=== PATIENT | female | born 1955 | race Caucasian/White ===

== ENCOUNTER → 2016-03-05 | Outpatient (CLI) | payer OTHER ==
[~2016-03-05] VITALS: Ht 160 cm; Wt 90.2 kg
[~2016-03-05] MED LIST: ASPCH81 PO; ASPI81TA28 PO; CITA20TA4 PO; CLX20 PO
[2016-03-05 16:19] VITALS: BP 159/80; PULSE 99; Ht 160 cm; Wt 90.2 kg
== END | disposition home or self-care (01) ==
LOC: C.NEUR 15:28
PROVIDERS: ATTEND Internal Medicine Pulmonary Disease
DX: G47.30 Sleep apnea, unspecified (principal); G47.19 Other hypersomnia

== ENCOUNTER → 2016-04-14 | Outpatient (CLI) | payer OTHER ==
[2016-04-14 13:12] LABS: ESTIMATED AVERAGE GLUCOSE 131 mg/dl; HA1C FLAG Normal (Normal)
[2016-04-14 13:13] LABS: THYROID STIMULATING HORMONE 2.47 uIu/ml (0.300-4.500)
== END | disposition home or self-care (01) ==
LOC: C.LABBFT 10:36
PROVIDERS: ATTEND Internal Medicine
DX: E11.9 Type 2 diabetes mellitus without complications (principal); E03.9 Hypothyroidism, unspecified

== ENCOUNTER 2016-06-13 18:37 | Emergency (ER) | payer OTHER ==
[~2016-06-13] VITALS: Ht 160 cm; Wt 88.4 kg
[~2016-06-13 18:37] MED LIST changes: -ASPI81TA28 PO; -CITA20TA4 PO
[2016-06-13 18:41] VITALS: TEMP 36.9; Ht 160 cm; Wt 88.4 kg
[2016-06-13] MEDS ORDERED: ACETAMINOPHEN 500 MG TAB PO STA (18:52)
[2016-06-13] MEDS ORDERED: KETOROLAC TROMETHAMINE 60 MG/2 ML VIAL IM STA (18:52)
--- NOTE | 2016-06-13 19:42 | DIAGNOSTIC IMAGING REPORT ---
CT SCAN OF THE BRAIN WITHOUT IV CONTRAST CLINICAL HISTORY: Headache. COMPARISON STUDY: CT of the brain dated 10/08/2013. TECHNIQUE: Unenhanced axial CT scan of the brain is performed from the vertex to the skull base. Automated dose control exposure was utilized. CT DOSE: 537.48 mGy.cm FINDINGS: Brain parenchyma: The brain parenchyma is normal in appearance. There is no hemorrhage, mass effect, or evidence of acute territorial ischemia by CT criteria. [place]oto-white matter is preserved. No extra-axial fluid collection is seen. Ventricles, sulci, cisterns: There is mild atherosclerotic calcification of the cavernous carotid arteries. Intracranial vasculature: The visualized intracranial vasculature at the skull base is normal in appearance. Calvarium: Unremarkable. Sinuses and mastoids: The visualized paranasal sinuses are clear. The mastoid air cells are well pneumatized. Orbits: The bony orbits are grossly intact. IMPRESSION: No acute intracranial abnormality. Electronically signed by: Cedric Rooney M.D. 06/13/2016 7:40 PM Dictated Date/Time: 06/13/2016 7:38 PM
[2016-06-13] MEDS ORDERED: ASPI81TA28 PO (19:43)
[2016-06-13] MEDS ORDERED: CITA20TA4 PO (19:43)
--- NOTE | 2016-06-13 19:55 | EMERGENCY ROOM VISIT NOTE ---
History Report prepared by [place]: Ignacio Lobato Under the Supervision of: Dr. Karthik Newton D.O. First contact with patient: 18:48 Chief Complaint: HYPERTENSION Stated Complaint: HIGH BLOOD PRESSURE,BAD HEADACHE History of Present Illness The patient is a 61 year old female who presents to the Emergency Room with complaints of constant hypertension for the past two days. The patient states that she was having a headache, so she checked her blood pressure and it was high. She states that she went to work, and she checked it later, and it was still high. The patient states that she took a half of a pill of blood pressure medicine, and that seemed to help, however the headache came back, and she took another half of a pill, and it did not help today. The patient states that the last time she checked her blood pressure it was 168/92mmHg. The patient additionally states that her doctor recently changed her medications. Source of History: patient Onset: two days ago Position: other (global) Quality: other (hypertension) Timing: constant Associated Symptoms: + headache Review of Systems See HPI for pertinent positives & negatives. A total of 10 systems reviewed and were otherwise negative. Past Medical & Surgical Medical Problems: (1) Hypertension Family History Cancer Diabetes mellitus Heart disease Hypertension Lung disease Social History Smoking Status: Never Smoker Alcohol Use: occasionally Marital Status: single Occupation Status: employed Current/Historical Medications Scheduled Aspirin (Aspirin Ec), 81 MG PO DAILY Citalopram Hydrobromide (Citalopram Hydrobromide), 10 TAB PO DAILY Allergies Coded Allergies: Penicillins (Unverified Allergy, Mild, ., 06/13/16) Lisinopril (Verified Allergy, Unknown, cough, 06/13/16) Physical Exam Vital Signs Date Time Temp Pulse Resp B/P Pulse Ox O2 Delivery O2 Flow Rate FiO2 06/13/16 18:41 36.9 90 20 162/85 98 Room Air Physical Exam CONSTITUTIONAL/VITAL SIGNS: Reviewed / noted above. GENERAL: Non-toxic in appearance. INTEGUMENTARY: Warm, dry, and [place]. HEAD: Normocephalic. EYES: without scleral icterus or trauma. ENT/OROPHARYNX: clear and moist. LYMPHADENOPATHY/NECK: Is supple without lymphadenopathy or meningismus. RESPIRATORY: Lungs clear and equal. CARDIOVASCULAR: Regular rate and rhythm. GI/ABDOMEN: Soft and nontender. No organomegaly or pulsatile mass. No rebound or guarding. Normal bowel sounds. EXTREMITIES: Warm and well perfused. BACK: No CVA tenderness. NEUROLOGICAL: Intact without focal deficits. PSYCHIATRIC: normal affect. MUSCULOSKELETAL: Normally developed with good muscle tone. Medical Decision & Procedures ER Provider Diagnostic Interpretation: Radiology results as stated below per my review and radiologist interpretation: CT SCAN OF THE BRAIN WITHOUT IV CONTRAST CLINICAL HISTORY: Headache. COMPARISON STUDY: CT of the brain dated 10/08/2013. TECHNIQUE: Unenhanced axial CT scan of the brain is performed from the vertex to the skull base. Automated dose control exposure was utilized. CT DOSE: 537.48 mGy.cm FINDINGS: Brain parenchyma: The brain parenchyma is normal in appearance. There is no hemorrhage, mass effect, or evidence of acute territorial ischemia by CT criteria. [place]oto-white matter is preserved. No extra-axial fluid collection is seen. Ventricles, sulci, cisterns: There is mild atherosclerotic calcification of the cavernous carotid arteries. Intracranial vasculature: The visualized intracranial vasculature at the skull base is normal in appearance. Calvarium: Unremarkable. Sinuses and mastoids: The visualized paranasal sinuses are clear. The mastoid air cells are well pneumatized. Orbits: The bony orbits are grossly intact. IMPRESSION: No acute intracranial abnormality. Electronically signed by: Cedric Rooney M.D. 06/13/2016 7:40 PM Dictated Date/Time: 06/13/2016 7:38 PM Medications Administered Medications (Trade) Dose Ordered Sig/Phoebe Route Start Time Stop Time Status Last Admin Dose Admin Acetaminophen (Tylenol Tab) 1,000 mg NOW STAT PO 06/13/16 18:52 06/13/16 18:53 DC 06/13/16 19:06 1,000 MG Ketorolac Tromethamine (Toradol Inj) 60 mg NOW STAT IM 06/13/16 18:52 06/13/16 18:53 DC 06/13/16 19:06 60 MG ED Course 1848: Previous medical records were reviewed. The patient was evaluated in room C6. A complete history and physical examination was performed. 185: Toradol Inj 60mg IM, Tylenol Tab 1000mg PO 1950: On reevaluation, the patient is doing well. I discussed the results and findings with the patient. She verbalized agreement of the treatment plan. She was discharged home. Medical Decision Differential includes: Acute intracranial bleed, trauma, meningitis, encephalitis, increased intracranial pressure, mass or mass effect, facial or dental infection, temporal arteritis, CVA, TIA, acute hypertensive emergency, sinusitis, carbon monoxide exposure. This is a 61-year-old female who presents to the ED with a chief complaint of a headache and concerns about hypertension. The patient states that she's had the symptoms since Tuesday. She's had a headache on Tuesday. She states that she also noticed that her blood pressure was elevated. It was in the 168/92 range. The patient states that she called her PCP and has an appointment to see her PCP on Tuesday. She states that she took extra doses of blood pressure medication but it did not seem to help her blood pressure or headache. She came in for evaluation. She is currently taking losartan 100 mg daily and hydrochlorothiazide 25 mg daily. The patient has not taken anything for her headache. Her physical and neurologic exam were normal. She was treated with Tylenol by mouth and Toradol IM. CT scan of the brain did not show acute process. Repeat blood pressure reveals 141/60. The patient was told the results of the test. She is felt to be stable for discharge. I do not feel her blood pressure is causing her headaches. The patient does report some stressors in her current living situation. She likely has stress and tension headache causing her increase in her blood pressure. Impression Primary Impression: Tension headache Additional Impression: Hypertension Scribe Attestation The scribe's documentation has been prepared under my direction and personally reviewed by me in its entirety. I confirm that the note above accurately reflects all work, treatment, procedures, and medical decision making performed by me. Departure Information Dispostion Home / Self-Care Referrals Anthony Cary M.D. (PCP) Patient Instructions My [facility] Additional Instructions Take Tylenol or Motrin as needed for headache. See your doctor on Tuesday for recheck. Problem Qualifiers
[2016-06-13 20:01] VITALS: BP 123/69; PULSE 74; O2SAT 95
== END 2016-06-13 20:00 | disposition home or self-care (01) ==
LOC: C.EDB 18:38 → C.EDC 20:00
DX: G44.209 Tension-type headache, unspecified, not intractable (principal); I10 Essential (primary) hypertension; Z79.82 Long term (current) use of aspirin; Z79.899 Other long term (current) drug therapy; Z82.49 Family history of ischemic heart disease and other diseases of the circulatory system; Z83.3 Family history of diabetes mellitus; Z83.6 Family history of other diseases of the respiratory system

== ENCOUNTER → 2016-09-07 | Outpatient (CLI) | payer OTHER ==
[~2016-09-07] VITALS: Ht 160 cm; Wt 87.2 kg
[~2016-09-07] MED LIST changes: -ASPCH81 PO; +ASPI81TA28 PO; +CITA20TA4 PO; -CLX20 PO
[2016-09-07 16:15] VITALS: BP 126/75; PULSE 97; Ht 160 cm; Wt 87.2 kg
== END | disposition home or self-care (01) ==
LOC: C.NEUR 15:37
PROVIDERS: ATTEND Internal Medicine Pulmonary Disease
DX: G47.30 Sleep apnea, unspecified (principal); G47.33 Obstructive sleep apnea (adult) (pediatric); Z99.89 Dependence on other enabling machines and devices

== ENCOUNTER → 2016-10-14 | Outpatient (CLI) | payer OTHER ==
[2016-10-14 12:19] LABS: URINE APPEARANCE CLEAR (CLEAR); URINE BILIRUBIN NEG (NEG); URINE COLOR YELLOW; URINE EPITHELIAL CELL AUTO >30 /lpf (0-5); URINE NITRITE NEG (NEG); URINE PH 7.5 (4.5-7.5); UROBILINOGEN NEG (NEG); ZZUR CULT IF INDIC CLEAN CATCH NO
[2016-10-14 12:20] LABS: BASO % 0.3 %; BASO ABS # 0.02 K/uL (0-0.2); COMPLETE YES; EOS % 2.6 %; HEMATOCRIT 35.8 % (37-47); IG% 0.4 %; LYMPH % 38.9 %; MEAN CORPUSCULAR HEMOGLOBIN 30.2 pg (25-34); MEAN CORPUSCULAR HGB CONC 32.1 g/dl (32-36); MEAN PLATELET VOLUME 10.2 fL (7.4-10.4); MONO % 5.8 %; PLATELET COUNT 276 K/uL (130-400); RED BLOOD COUNT 3.81 M/uL (4.2-5.4); WHITE BLOOD COUNT 7.72 K/uL (4.8-10.8)
[2016-10-14 12:28] LABS: MANUAL MICROSCOPIC REQUIRED? NO; REVIEW REQ? NO
[2016-10-14 12:38] LABS: ESTIMATED AVERAGE GLUCOSE 128 mg/dl; HA1C FLAG Normal (Normal)
[2016-10-14 12:55] LABS: ALT/SGPT 28 U/L (12-78); AST/SGOT 21 U/L (15-37); BLOOD UREA NITROGEN 19 mg/dl (7-18); BUN/CREATININE RATIO 19.9 (10-20); CALCIUM 9.3 mg/dl (8.5-10.1); CARBON DIOXIDE 31 mmol/L (21-32); CHLORIDE 106 mmol/L (98-107); CHOLESTEROL 130 mg/dl (0-200); CREATININE 0.96 mg/dl (0.60-1.20); GLUCOSE 98 mg/dl (70-99); POTASSIUM 3.6 mmol/L (3.5-5.1); SODIUM 143 mmol/L (136-145)
[2016-10-14 13:06] LABS: ALKALINE PHOSPHATASE 78 U/L (45-117); CHOLESTEROL/HDL RATIO 3.3; HDL CHOLESTEROL 40 mg/dl; LDL CHOLESTEROL CALCULATED 48 mg/dl; TRIGLYCERIDES 211 mg/dl (0-150); VERY LOW DENSITY LIPOPROT CALC 42 mg/dl
[2016-10-14 13:29] LABS: RATIO 4.2 mcg/mg (0-30.0)
== END | disposition home or self-care (01) ==
LOC: C.LABBFT 10:44
PROVIDERS: ATTEND Internal Medicine
DX: E11.9 Type 2 diabetes mellitus without complications (principal); E78.5 Hyperlipidemia, unspecified; E03.9 Hypothyroidism, unspecified

== ENCOUNTER → 2016-12-08 | Outpatient (CLI) | payer OTHER ==
[2016-12-08 12:24] LABS: BASO % 0.3 %; BASO ABS # 0.02 K/uL (0-0.2); COMPLETE YES; EOS % 3.3 %; HEMATOCRIT 32.2 % (37-47); IG% 0.4 %; LYMPH % 37.9 %; LYMPH ABS # 2.96 K/uL (1.2-3.4); MEAN CELL VOLUME 91.2 fL (80-100); MEAN CORPUSCULAR HEMOGLOBIN 30.6 pg (25-34); MEAN CORPUSCULAR HGB CONC 33.5 g/dl (32-36); NEUT % 51.1 %; PLATELET COUNT 244 K/uL (130-400); RED BLOOD COUNT 3.53 M/uL (4.2-5.4); WHITE BLOOD COUNT 7.82 K/uL (4.8-10.8)
== END | disposition home or self-care (01) ==
LOC: C.LABBFT 10:54
PROVIDERS: ATTEND Internal Medicine
DX: D64.9 Anemia, unspecified (principal)

== ENCOUNTER → 2016-12-09 | Outpatient (CLI) | payer OTHER ==
[2016-12-09 18:17] LABS: FERRITIN 57.1 ng/ml (8.0-388.0)
== END | disposition home or self-care (01) ==
LOC: C.LABBFT 12:28
PROVIDERS: ATTEND Internal Medicine
DX: D64.9 Anemia, unspecified (principal)

== ENCOUNTER → 2016-12-13 | Outpatient (CLI) | payer OTHER | END | disposition home or self-care (01) | LOC: C.LABBFT 11:43 | PROVIDERS: ATTEND Internal Medicine | DX: D64.9 Anemia, unspecified (principal) ==

== ENCOUNTER → 2017-03-28 | Outpatient (CLI) | payer OTHER ==
[2017-03-28 12:20] LABS: BASO % 0.2 %; BASO ABS # 0.02 K/uL (0-0.2); EOS % 2.3 %; EOS ABS # 0.19 K/uL (0-0.5); HEMATOCRIT 36.1 % (37-47); HEMOGLOBIN 11.8 g/dL (12.0-16.0); IG# 0.03 K/uL (0.00-0.02); LYMPH % 38.5 %; LYMPH ABS # 3.23 K/uL (1.2-3.4); MEAN CELL VOLUME 91.6 fL (80-100); MEAN CORPUSCULAR HEMOGLOBIN 29.9 pg (25-34); MEAN CORPUSCULAR HGB CONC 32.7 g/dl (32-36); MEAN PLATELET VOLUME 10.2 fL (7.4-10.4); MONO % 6.7 %; MONO ABS # 0.56 K/uL (0.11-0.59); NEUT % 51.9 %; NEUT ABS # 4.35 K/uL (1.4-6.5); PLATELET COUNT 261 K/uL (130-400); RED CELL DISTRIBUTION WIDTH CV 13.8 % (11.5-14.5); RED CELL DISTRIBUTION WIDTH SD 45.7 fL (36.4-46.3); WHITE BLOOD COUNT 8.38 K/uL (4.8-10.8)
[2017-03-28 17:42] LABS: ALT/SGPT 31 U/L (12-78); AST/SGOT 18 U/L (15-37); BLOOD UREA NITROGEN 22 mg/dl (7-18); CALCIUM 9.3 mg/dl (8.5-10.1); CARBON DIOXIDE 30 mmol/L (21-32); CHOLESTEROL 122 mg/dl (0-200); CREATININE 1.12 mg/dl (0.60-1.20); GLUCOSE 86 mg/dl (70-99); POTASSIUM 3.6 mmol/L (3.5-5.1); SODIUM 139 mmol/L (136-145)
[2017-03-28 17:44] LABS: ALKALINE PHOSPHATASE 83 U/L (45-117); LDL CHOLESTEROL CALCULATED 45 mg/dl; TOTAL PROTEIN 8.1 gm/dl (6.4-8.2)
== END | disposition home or self-care (01) ==
LOC: C.LABBFT 11:19
PROVIDERS: ATTEND Physician Assistant Medical
DX: D64.9 Anemia, unspecified (principal); E11.9 Type 2 diabetes mellitus without complications; E78.5 Hyperlipidemia, unspecified

== ENCOUNTER → 2017-05-24 | Outpatient (CLI) | payer OTHER ==
[~2017-05-24] VITALS: Ht 160 cm; Wt 87.0 kg
[2017-05-24 16:29] VITALS: BP 136/73; PULSE 90; Ht 160 cm; Wt 87.0 kg
== END | disposition home or self-care (01) ==
LOC: C.NEUR 14:57
PROVIDERS: ATTEND Physician Assistant Medical
DX: G47.33 Obstructive sleep apnea (adult) (pediatric) (principal); Z99.89 Dependence on other enabling machines and devices; E66.9 Obesity, unspecified